=== PATIENT | female | born 1975 | race Caucasian/White ===

== ENCOUNTER 2018-05-07 22:45 | Emergency (ER) | payer SELFPAY ==
[2018-05-07 22:53] VITALS: BP 117/79; PULSE 81; TEMP 98.2; BMI 27.5
[2018-05-07 23:26] LABS: URINE APPEARANCE SLCLOUDY; URINE BILIRUBIN NEGATIVE (<2.0 mg/dL); URINE COLOR YELLOW; URINE GLUCOSE (UA) NEGATIVE (NEGATIVE); URINE KETONE NEGATIVE (NEGATIVE); URINE LEUK ESTERASE NEGATIVE (NEGATIVE); URINE NITRITE NEGATIVE (NEGATIVE); URINE PROTEIN NEGATIVE (NEGATIVE)
[2018-05-07 23:27] LABS: HCG,QUALITATIVE URINE Negative
--- NOTE | 2018-05-07 23:47 | PDOC ---
History of Present Illness <Deonna Martinez - Last Filed: 05/08/18 03:37> - General History Source: Patient Exam Limitations: No Limitations - History of Present Illness Initial Comments: 05/07/18 23:42 43 yo female pmh s/p brain tumor removal and tubal ligation presents to the ED for 1 day of abdominal pain. Of note, pt had similar pain 1 month ago for 1 day that resolved without treatment. Today, Pain started suddenly around 2 pm today , is constant, non radiating, located suprapubic region and described as sharp. Pt tried tylenol at home without improvement. Pt admits to associated burning on urination, denies frequency or blood in urine, denies back pain, N/V/F/C, vaginal pain or discharge. <Uri Grimes - Last Filed: 05/08/18 04:02> - General Chief Complaint: Pain Stated Complaint: ABDOMINAL PAIN/ urinary pain Time Seen by Provider: 05/07/18 23:19 Past History <Deonna Martinez - Last Filed: 05/08/18 03:37> - Past Medical History Anemia: No Asthma: No Cancer: No Cardiac Disorders: No CVA: No COPD: No CHF: No Dementia: No Diabetes: No GI Disorders: No Disorders: No HTN: No Hypercholesterolemia: No Liver Disease: No Seizures: No Thyroid Disease: No - Surgical History Abdominal Surgery: No Appendectomy: No Cardiac Surgery: No Cholecystectomy: No Lung Surgery: No Neurologic Surgery: Yes (BRAIN TUMOR 2010) Orthopedic Surgery: No - Reproductive History (#): 6 Para: 5 Cervical CA: No Dysfunctional Uterine Bleeding: No Ectopic : No Endometrial CA: No Polycystic Ovaries: No Therapeutic (s) & number: No Tubal Ligation: No - Immunization History Immunization Up to Date: Yes - Suicide/Smoking/Psychosocial Hx Smoking Status: No Smoking History: Never smoked Have you smoked in the past 12 months: No Number of Cigarettes Smoked Daily: 0 Information on smoking cessation initiated: No Hx Alcohol Use: No Drug/Substance Use Hx: No Substance Use Type: None Hx Substance Use Treatment: No <Uri Grimes - Last Filed: 05/08/18 04:02> - Past Medical History Allergies/Adverse Reactions: Allergies Allergy/AdvReac Type Severity Reaction Status Date / Time No Known Allergies Allergy Verified 05/07/18 22:53 Home Medications: Ambulatory Orders NK [No Known Home Medication] 05/07/18 Review of Systems - Review of Systems Constitutional: No: Chills, Fever Respiratory: No: Shortness of Breath Cardiac (ROS): No: Chest Pain, Edema ABD/GI: No: Abdominal Distended, Constipated, Diarrhea, Nausea, Vomiting <Uri Grimes - Last Filed: 05/08/18 04:02> *Physical Exam - Vital Signs Last Vital Signs Temp Pulse Resp BP Pulse Ox 98.2 F 81 16 117/79 100 05/07/18 22:51 05/07/18 22:51 05/07/18 22:51 05/07/18 22:51 05/07/18 22:51 <Deonna Martinez - Last Filed: 05/08/18 03:37> - Vital Signs Last Vital Signs Temp Pulse Resp BP Pulse Ox 98.2 F 81 16 117/79 100 05/07/18 22:51 05/07/18 22:51 05/07/18 22:51 05/07/18 22:51 05/07/18 22:51 <Uri Grimes - Last Filed: 05/08/18 04:02> Moderate Sedation - Procedure Monitoring Vital Signs: Procedure Monitoring Vital Signs Temperature 98.2 F 05/07/18 22:51 Pulse Rate 81 05/07/18 22:51 Respiratory Rate 16 05/07/18 22:51 Blood Pressure 117/79 05/07/18 22:51 O2 Sat by Pulse Oximetry (%) 100 05/07/18 22:51 <Deonna Martinez - Last Filed: 05/08/18 03:37> - Procedure Monitoring Vital Signs: Procedure Monitoring Vital Signs Temperature 98.2 F 05/07/18 22:51 Pulse Rate 81 05/07/18 22:51 Respiratory Rate 16 05/07/18 22:51 Blood Pressure 117/79 05/07/18 22:51 O2 Sat by Pulse Oximetry (%) 100 05/07/18 22:51 <Uri Grimes - Last Filed: 05/08/18 04:02> ED Treatment Course - LABORATORY CBC & Chemistry Diagram: 05/08/18 01:10 05/08/18 01:10 - ADDITIONAL ORDERS Additional order review: Laboratory Results 05/08/18 05/07/18 01:10 23:07 Sodium 141 Potassium 3.6 Chloride 109 H Carbon Dioxide 27 Anion Gap 6 L BUN 10 Creatinine 0.6 Creat Clearance w eGFR > 60 Random Glucose 102 Calcium 7.7 L Total Bilirubin 0.4 AST 9 L ALT 17 Alkaline Phosphatase 117 Total Protein 7.2 Albumin 3.9 Beta HCG, Quant < 1.0 Urine Color Yellow Urine Appearance Slcloudy Urine pH 7.0 Ur Specific [place] 1.021 Urine Protein Negative Urine Glucose (UA) Negative Urine Ketones Negative Urine Blood Negative Urine Nitrite Negative Urine Bilirubin Negative Urine Urobilinogen 2.0 H Ur Leukocyte Esterase Negative Urine HCG, Qual Negative 05/08/18 01:10 RBC 3.82 MCV 87.8 MCHC 34.5 RDW 14.0 MPV 8.0 Neutrophils % 69.5 Lymphocytes % 22.2 D Monocytes % 7.1 Eosinophils % 0.8 Basophils % 0.4 - Medications Given in the ED: ED Medications Discontinued Medications Generic Name Dose Route Start Last Admin Trade Name Freq PRN Reason Stop Dose Admin Acetaminophen 1,000 mg 05/08/18 00:22 05/08/18 01:22 Ofirmev Injection - IVPB 05/08/18 00:23 1,000 mg ONCE ONE Administration <Deonna Martinez - Last Filed: 05/08/18 03:37> - LABORATORY CBC & Chemistry Diagram: 05/08/18 01:10 05/08/18 01:10 - ADDITIONAL ORDERS Additional order review: Laboratory Results 05/07/18 23:07 Urine Color Yellow Urine Appearance Slcloudy Urine pH 7.0 Ur Specific [place] 1.021 Urine Protein Negative Urine Glucose (UA) Negative Urine Ketones Negative Urine Blood Negative Urine Nitrite Negative Urine Bilirubin Negative Urine Urobilinogen 2.0 H Ur Leukocyte Esterase Negative Urine HCG, Qual Negative <Uri Grimes - Last Filed: 05/08/18 04:02> Medical Decision Making - Medical Decision Making 05/08/18 03:37 Referring Physician: FREDY WEBBER Patient Name: CALLUM LOMELI THIS IS A PRELIMINARY REPORT FROM [facility] DATE OF SERVICE: 2018-05-08 02:17:26 IMAGES: [id number] EXAM: ABDOMEN \T\ PELVIS CT WITH CONTR HISTORY: Lower abdominal pain COMPARISON: None. FINDINGS: Lung bases are clear. The visualized cardiac chambers are normal size and configuration. Cholesterol gallstones are noted with questionable mild gallbladder inflammation. No biliary duct dilation. Small right hepatic lobe hypodensity is too small to characterize, possibly a cyst or hemangioma. Normal pancreas, spleen, adrenal glands and kidneys. The stomach and abdominal small and large bowel are normal. There is no aortic aneurysm. There is no significant retroperitoneal lymphadenopathy. Small fat containing umbilical hernia is noted. The pelvic small and large bowel are normal. The appendix is normal. The uterus and adnexal structures are normal. Urinary bladder is unremarkable. There is no pelvic free fluid. No discrete pelvic lymphadenopathy is identified. IMPRESSION: Gallstones and questionable mild gallbladder inflammation. Right upper quadrant ultrasound may be obtained as clinically indicated. <MartinezDeonna - Last Filed: 05/08/18 03:37> *DC/Admit/Observation/Transfer <MartinezDeonna - Last Filed: 05/08/18 03:37> - Discharge Dispostion Decision to Admit order: No <Uri Grimes - Last Filed: 05/08/18 04:02> Diagnosis at time of Disposition: Abdominal pain Qualifiers: Abdominal location: lower abdomen, unspecified Qualified Code(s): R10.30 - Lower abdominal pain, unspecified - Discharge Dispostion Disposition: HOME Condition at time of disposition: Stable - Referrals Referrals: Eileen Arevalo MD [Staff Physician] - - Patient Instructions Printed Discharge Instructions: DI for Abdominal Pain-Adult Additional Instructions: Please see your primary doctor within the next 48 hours. Make an appointment to see the Consultant [employer]. [employer] (Ex ) referred to you. Return to the ER for new or concerning symptoms including but not limited to: excessive pain not relieved by over the counter NSAID medication, high fevers, inability to eat or drink. Take over the counter Tylenol or Motrin for pain control. Thank you
[2018-05-08] MEDS ORDERED: ACETAMINOPHEN 1000 MG/100 ML VIAL (NON FORMULARY) IVPB ONE (00:22)
[2018-05-08] MEDS ORDERED: ACETAMINOPHEN INJECTION 100 ML IVPB ONE (01:16)
[2018-05-08 01:20] LABS: BASO % 0.4 % (0-2.0); EOS % 0.8 % (0-4.5); HEMATOCRIT 33.5 % (32.4-45.2); HEMOGLOBIN 11.6 GM/dL (10.7-15.3); LYMPH % 22.2 % (8-40); MCH 30.3 pg (25.7-33.7); MCHC 34.5 g/dl (32.0-36.0); MEAN CELL VOLUME 87.8 fl (80-96); MONO % 7.1 % (3.8-10.2); NEUT % 69.5 % (42.8-82.8); PLATELET COUNT 261 K/MM3 (134-434); RBC 3.82 M/mm3 (3.60-5.2); WHITE BLOOD COUNT 6.2 K/mm3 (4.0-10.0)
[2018-05-08 01:58] LABS: ALBUMIN 3.9 g/dl (3.4-5.0); ALK PHOS 117 U/L (45-117); ANION GAP 6 MMOL/L (8-16); BILIRUBIN,TOTAL 0.4 mg/dL (0.2-1); BLOOD UREA NITROGEN 10 mg/dL (7-18); CALCIUM 7.7 mg/dL (8.5-10.1); CHLORIDE 109 mmol/L (98-107); CO2 27 mmol/L (21-32); CREATININE 0.6 mg/dL (0.55-1.3); GLUCOSE,RANDOM 102 mg/dL (74-106); POTASSIUM 3.6 mmol/L (3.5-5.1); SGOT/AST 9 U/L (15-37); SGPT/ALT 17 U/L (13-61); SODIUM 141 mmol/L (136-145); TOT PROT 7.2 g/dl (6.4-8.2)
--- NOTE | 2018-05-08 02:08 | PDOC ---
Attending Attestation - HPI HPI: CC: Abdominal pain The patient is a 43 year old female, with a significant PMH of brain tumor s/p resection and tubal ligation, who presents to the emergency department today complaining of abdominal pain for 1 day. Patient notes that the pain suddenly came on earlier this afternoon without any causal factor. She describes the pain as sharp, constant, and localized to the suprapubic region. Patient reports associated dysuria, but denies any other urinary symptoms or vaginal pain/discharge. She admits to trying Tylenol without any relief. Patient notes a history of similar symptoms 1 month ago, which lasted for a day and self- resolved. The patient denies chest pain, shortness of breath, headache and dizziness. Denies fever, chills, nausea, vomit, diarrhea and constipation. Denies frequency, urgency and hematuria. Allergies: NKA Past surgical history: Brain tumor resection, tubal ligation Social history: No reported 05/08/18 02:09 - Physicial Exam PE: Vitals: Triage Vital signs reviewed General Appearance: no acute distress, well nourished well developed, Head: Atraumatic, normocephalic Cardiac: Regular rate and rhythm, no murmurs, no rubs, no gallops, Lungs: Clear to auscultation bilateral, good air movement bilaterally, Abdomen: +Diffuse lower abdominal tenderness to palpation. Soft, nondistended, normal bowel sounds, Extremities: Full range of motion to all extremities, no cyanosis, clubbing, or edema Skin: Warm and dry, no rashes or lesions, no petechiae Neuro: AOX3; Cranial Nerves 2-12 grossly c intact, Strength intact to all extremities, Sensation intact to all extremities. Psych: normal mood, normal affect 05/08/18 02:09 - Medical Decision Making 43 year old female with history of brain tumor resection and tubal ligation presents to the ED with abdominal pain for 1 day. Plan: Obtain labs, Transabdominal pelvic ultrasound, and administer IV Tylenol for pain relief. 2:00 am Re-assessment: Patient notes her pain remains. Will obtain abdomen CT with IV contrast to rule out acute surgical process. EXAM: Transabdominal pelvic ultrasound, endovaginal pelvic ultrasound with duplex IMPRESSION: Normal exam Reported by: Red Deras MD 05/08/2018 00:52 Documentation prepared by MATTHEW Jackson, acting as medical artist for Donny Kincaid MD. 05/08/18 02:10 <Krystle Leigh - Last Filed: 05/08/18 02:09> - Resident Resident Name: Uri Grimes - ED Attending Attestation I have performed the following: I have examined & evaluated the patient, The case was reviewed & discussed with the resident, I agree w/resident's findings & plan, Exceptions are as noted - Medical Decision Making No acute findings on laboratory analysis or ultrasound patient still persistent lower abdominal discomfort we'll CT abdomen pelvis to rule out acute surgical pathology Doctor Kavitha to follow-up results and dispo <Donny Kincaid - Last Filed: 05/08/18 02:16>
== END 2018-05-08 04:26 | disposition home or self-care (01) ==
LOC: JER 22:45
PROC: 3E033NZ Introduction of Analgesics, Hypnotics, Sedatives into Peripheral Vein, Percutaneous Approach (ICD-10-PCS; principal; 2018-05-07)
DX: R10.9 Unspecified abdominal pain (principal); K80.20 Calculus of gallbladder without cholecystitis without obstruction
CPT/HCPCS: 36415; 74177-TC; 76830-TC; 80053; 81003; 84702; 84703; 85025; 87086; 99283-25; J0131

== ENCOUNTER → 2019-02-06 | Emergency (ER) | payer OTHER ==
[~2019-02-06] MED LIST: ACETAMINOPHEN 325 MG TABLET (FP) ONE; ACETAMINOPHEN 325 MG TABLET (FP) PO ONE; CEFTRIAXONE 2,000 MG in DEXTROSE 5%-WATER - 50 ML IVPB ONE; PIPERACILLIN/TAZOB 4.5 GM 4.5 GM in DEXTROSE 5%-WATER 100 ML IVPB ONE; PIPERACILLIN/TAZOB 4.5 GM 4.5 GM/100 ML BAG IVPB ONE; VANCOMYCIN 1 GRAM (PRE-DOCKED) 1,000 MG/250 ML BAG IVPB ONE; VANCOMYCIN 1,000 MG in DEXTROSE 5%-WATER - 250 ML IVPB ONE
[2019-02-06 02:23] VITALS: BMI 28.8
--- NOTE | 2019-02-06 03:17 | PDOC ---
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 Pt reported her pain is constant, worse with coughing, bilateral anterior chest , no radiation, no alleviating factors. Pt also complained of room-spinning episode yesterday while standing at work, lasting 30 minutes with symptoms coming and going, associated with nausea, that self resolved. She reported this episode of vertigo was not associated with going from supine to standing/vice versa or associated with head orientation. She denied fever, lightheadedness, JOHNSON, headache. ROS General: denied fever, chills, generalized weakness. HEENT: denied sore throat, rhinorrhea, ear pain. Cardiovascular: denied chest pain, palpitations, syncope, diaphoresis. Respiratory: denied shortness of breath, cough, sputum production, hemoptysis. Gastrointestinal: denied abdominal pain, nausea, vomiting, diarrhea, constipation, blood in stool. Genitourinary: denied dysuria, increased urinary frequency, hematuria, urinary incontinence, flank pain. Back: denied back pain. Musculoskeletal: denied joint pain, muscle pain, joint swelling. Neurological: admitted to dizziness. denied headache, numbness, tingling, weakness. Integumentary: denied rash, laceration, abrasion. Hematologic/Lymphatic: denied bruising or bleeding. PE Constitutional: Well-nourished, Well-developed, appearing stated age. ambulating well without assistance. HEENT: head is normocephalic, atraumatic. EOMI. PERRLA. no tenderness to mastoid area bilaterally. no tenderness to posterior auricular area bilaterally. Neck: supple. Full ROM. no midline or paraspinal c-spine tenderness to palpation. Chest: reproducible anterior chest wall tenderness bilaterally. Cardiovascular: regular heart rhythm. no murmurs. no pericardial friction rub. Respiratory: clear to auscultation bilaterally. no crackles, rhonchi or wheezing. no stridor. speaking full sentences. no labored breathing at rest. no dyspnea with ambulation. Gastrointestinal: soft, nontender. normal bowel sounds. no rebound, guarding, masses. Extremities: peripheral pulses intact. no lower extremity edema. Neurological: CN 2-12 grossly intact. moves all four extremities. Psych: awake, alert, oriented x3. follows commands. answers questions appropriately. Past History - Past Medical History Allergies/Adverse Reactions: Allergies Allergy/AdvReac Type Severity Reaction Status Date / Time No Known Allergies Allergy Verified 02/06/19 02:15 Home Medications: Ambulatory Orders NK [No Known Home Medication] 05/07/18 - Psycho Social/Smoking Cessation Hx Smoking Status: No Smoking History: Never smoked Number of Cigarettes Smoked Daily: 0 Hx Alcohol Use: No Drug/Substance Use Hx: No *Physical Exam - Vital Signs Last Vital Signs Temp Pulse Resp BP Pulse Ox 98.1 F 81 17 107/76 97 02/06/19 02:02 02/06/19 02:02 02/06/19 02:02 02/06/19 02:02 02/06/19 02:02 ED Treatment Course - LABORATORY CBC & Chemistry Diagram: 02/06/19 03:33 02/06/19 03:33 Medical Decision Making - Medical Decision Making 43 year old female with above PMH presented to ED for chest pain associated with productive yellow cough. Pt also complained of a 30 minute episode of intermittent room-spinning sensation. Initial Vital Signs Temp Pulse Resp BP Pulse Ox 98.0 F 81 17 107/76 97 02/06/19 00:55 02/06/19 00:55 02/06/19 00:55 02/06/19 00:55 02/06/19 00:55 Afebrile. No tachycardia. No tachypnea. Normal BP for age. No hypoxia on room air. Labs ordered: CBC, CMP, Mag, BNP, troponin Imaging ordered: CXR, CT head noncontrast Medications ordered: tylenol 975 mg PO once EKG performed at 0358: rate 72, regular rhythm, normal axis, normal intervals, nonspecific ST changes. MRI Brain 10/27/12: Name: CEC[facility] DEPARTMENT OF RADIOLOGY Phys: Mt Hanson MD : 1975 Age: 37 Sex: F [facility] Acct : [id number] Loc: [address] Exam Date: 10/27/12 Status: REG REF [place] [id number] Unit Number: [id number] EXAM#: TYPE/EXAM: RESULT: MRI/BRAIN MRI W/O CONTRAST MRI of the brain. HISTORY: peripheral nerve palsy. TECHNIQUE: Multisequential MRI of the brain was obtained in multiple planes without use of intravenous gadolinium. FINDINGS: There is a large mass involving the right temporal bone measuring 6.4 x 6.0 x 3.7 cm in greatest dimensions. The mass involves the temporal bone with extension into the right aspect of the clivus and the Johnathan apex. Resultant large amount of fluid within the right mastoid air cells. The mass extends into the right cerebellopontine angle and causes mass effect on the right middle cerebellar peduncle and the right cerebellar hemisphere. Extension into the right internal auditory canal noted. Mild mass effect on the right aspect of the fourth ventricle. The right internal carotid artery foramen is involved, however the flow-void does not appear to be disrupted. No intraparenchymal mass noted. The encephalomalacia involving the right cerebellar hemisphere likely related to old tumor resection. No intraparenchymal hemorrhage noted. IMPRESSION: 6.4 x 6.0 x 3.7 cm mass involving the right temporal bone with extension into the Johnathan apex and the right cerebellopontine angle with mass effect on the right middle cerebellar peduncle as described above. Finding could be metastatic or due to a primary bony lesion. A CT scan may be helpful in further evaluation. <> Reported By: Dragan Mcgee MD 02/06/19 04:34 CBC WBC 6.5 K/mm3 (4.0-10.0) 02/06/19 03:33 RBC 3.82 M/mm3 (3.60-5.2) 02/06/19 03:33 Hgb 11.0 GM/dL (10.7-15.3) 02/06/19 03:33 Hct 33.7 % (32.4-45.2) 02/06/19 03:33 MCV 88.2 fl (80-96) 02/06/19 03:33 MCH 28.7 pg (25.7-33.7) 02/06/19 03:33 MCHC 32.6 g/dl (32.0-36.0) 02/06/19 03:33 RDW 14.5 % (11.6-15.6) 02/06/19 03:33 Plt Count 232 K/MM3 (134-434) 02/06/19 03:33 MPV 8.1 fl (7.5-11.1) 02/06/19 03:33 Absolute Neuts (auto) 4.0 K/mm3 (1.5-8.0) 02/06/19 03:33 Neutrophils % 61.2 % (42.8-82.8) 02/06/19 03:33 Lymphocytes % 29.9 % (8-40) D 02/06/19 03:33 Monocytes % 6.8 % (3.8-10.2) 02/06/19 03:33 Eosinophils % 1.8 % (0-4.5) D 02/06/19 03:33 Basophils % 0.3 % (0-2.0) 02/06/19 03:33 Nucleated RBC % 0 % (0-0) 02/06/19 03:33 CMP Sodium 141 mmol/L (136-145) 02/06/19 03:33 Potassium 3.6 mmol/L (3.5-5.1) 02/06/19 03:33 Chloride 113 mmol/L (98-107) H 02/06/19 03:33 Carbon Dioxide 23 mmol/L (21-32) 02/06/19 03:33 Anion Gap 5 MMOL/L (8-16) L 02/06/19 03:33 BUN 9.0 mg/dL (7-18) 02/06/19 03:33 Creatinine 0.5 mg/dL (0.55-1.3) L 02/06/19 03:33 Est GFR (CKD-EPI)AfAm 139.33 02/06/19 03:33 Est GFR (CKD-EPI)NonAf 120.22 02/06/19 03:33 Random Glucose 109 mg/dL (74-106) H 02/06/19 03:33 Calcium 8.1 mg/dL (8.5-10.1) L 02/06/19 03:33 Total Bilirubin 0.2 mg/dL (0.2-1) 02/06/19 03:33 AST 5 U/L (15-37) L 02/06/19 03:33 ALT 14 U/L (13-61) 02/06/19 03:33 Alkaline Phosphatase 101 U/L (45-117) 02/06/19 03:33 Troponin I < 0.02 ng/ml (0.00-0.05) 02/06/19 03:33 B-Natriuretic Peptide 20.5 pg/ml (5-125) 02/06/19 03:33 Total Protein 6.5 g/dl (6.4-8.2) 02/06/19 03:33 Albumin 3.7 g/dl (3.4-5.0) 02/06/19 03:33 Lipase 217 U/L (73-393) 02/06/19 03:33 Serum , Qual Negative 02/06/19 03:33 02/06/19 04:52 CXR shows no infiltrate, no cardiomegaly, no large pneumothorax by my view. -Pending official report 02/06/19 05:08 Pt reported improvement of symptoms with Tylenol. Pending CT head. 02/06/19 06:20 CT head report: Referring Physician: KEON FRANCE Patient Name: CALLUM LOMELI THIS IS A PRELIMINARY REPORT FROM [facility] DATE OF SERVICE: 2019-02-06 05:42:52 IMAGES: [id number] EXAM: HEAD CT WITHOUT CONTRAST HISTORY: Vertigo COMPARISON: None. FINDINGS: Status post right occipital craniectomy with subjacent encephalomalacia. The ventricular system is midline and nondilated. The sulcal pattern is normal for the patient's age. There is no bleed, mass, extra-axial fluid collection or mass effect. No skull fracture or skull lesion is identified. Large right mastoid effusion indicate severe mastoiditis. Left mastoid air cells are clear. There is small retention cysts or polyps in the left maxillary sinus and minimal mucosal thickening in the sphenoids sinuses. IMPRESSION: Severe right mastoiditis may be related to prior occipital craniectomy. Postoperative right cerebellar encephalomalacia, without definite evidence of acute pathology, but suggest comparison with any prior exams. One or more of the following dose reduction techniques were used: automated exposure control, adjustment of the mA and/or kV according to patient size, use of iterative reconstructive technique. THIS DOCUMENT HAS BEEN ELECTRONICALLY SIGNED Red Deras MD 02/06/2019 06:03 GORAN Swan Please call [facility] [email or web address] ([phone]) with questions. Rachid Deras MD Medications ordered: Vancomycin and Zosyn. Labs ordered: blood cultures Pt to be transferred to tertiary care center as there is no inpatient ENT at [facility]. Pt would likely benefit from transfer to hospital in which she had her original surgery performed for temporal bone mass. 02/06/19 06:46 Pt informed of results, reported her surgery was performed at [place]. Will call transfer center. 02/06/19 06:57 Pt's son (Luis Reis) left ED to grab pt's belongings, requesting to be called if patient is sent somewhere else than [place]. Transfer center called by PGY3 Dr. Elizabeth, reported physician will call back, but not until around 0730, as it is shift change. Pt signed out to Dr. Hansen. Pt is pending transfer, need accepting ENT or Neurosurgery. Discharge - Discharge Information Problems reviewed: Yes Clinical Impression/Diagnosis: Cough, Chest pain, Mastoiditis Condition: Stable Disposition: TRANSFER ACUTE CARE/OTHER HOSP - Admission No - Follow up/Referral Referrals: Drake Butler MD [Primary Care Provider] - - Patient Discharge Instructions Print Language: IVORIAN - Post Discharge Activity
--- NOTE | 2019-02-06 03:35 | PDOC ---
Attending Attestation - Resident Resident Name: MichelleMartha - ED Attending Attestation I have performed the following: I have examined & evaluated the patient, The case was reviewed & discussed with the resident, I agree w/resident's findings & plan - HPI HPI: 02/06/19 20:00 see resident hpi - Physicial Exam PE: 02/06/19 20:00 agree with resident exam - Medical Decision Making 02/06/19 20:00 43 yo female with dizziness and CP CT scan showed mastitis possibly related to previous intracranial surgery Case signed out to [facility] for transfer set up to [facility] for continuity of care and ENT consultation
[2019-02-06 03:44] LABS: BASO % 0.3 % (0-2.0); EOS % 1.8 % (0-4.5); HEMATOCRIT 33.7 % (32.4-45.2); LYMPH % 29.9 % (8-40); MCH 28.7 pg (25.7-33.7); MCHC 32.6 g/dl (32.0-36.0); MEAN CELL VOLUME 88.2 fl (80-96); MEAN PLT VOLUME 8.1 fl (7.5-11.1); MONO % 6.8 % (3.8-10.2); NEUT % 61.2 % (42.8-82.8); PLATELET COUNT 232 K/MM3 (134-434); RBC 3.82 M/mm3 (3.60-5.2); RDW 14.5 % (11.6-15.6); WHITE BLOOD COUNT 6.5 K/mm3 (4.0-10.0)
[2019-02-06 04:05] LABS: ALBUMIN 3.7 g/dl (3.4-5.0); BILIRUBIN,TOTAL 0.2 mg/dL (0.2-1); CALCIUM 8.1 mg/dL (8.5-10.1); CREATININE 0.5 mg/dL (0.55-1.3); POTASSIUM 3.6 mmol/L (3.5-5.1); TOT PROT 6.5 g/dl (6.4-8.2)
[2019-02-06 04:07] LABS: INR 1.1 (0.83-1.09)
--- NOTE | 2019-02-06 07:30 | PDOC ---
*Physical Exam - Vital Signs Last Vital Signs Temp Pulse Resp BP Pulse Ox 98.1 F 81 17 107/76 97 02/06/19 02:02 02/06/19 02:02 02/06/19 02:02 02/06/19 02:02 02/06/19 02:02 ED Treatment Course - LABORATORY CBC & Chemistry Diagram: 02/06/19 03:33 02/06/19 03:33 - ADDITIONAL ORDERS Additional order review: Laboratory Results 02/06/19 02/06/19 02/06/19 03:33 03:33 03:33 PT with INR 13.00 INR 1.10 H PTT (Actin FS) Sodium Potassium Chloride Carbon Dioxide Anion Gap BUN Creatinine Est GFR (CKD-EPI)AfAm Est GFR (CKD-EPI)NonAf Random Glucose Calcium Total Bilirubin AST ALT Alkaline Phosphatase Troponin I < 0.02 B-Natriuretic Peptide Total Protein Albumin Lipase Serum , Qual Negative 02/06/19 02/06/19 02/06/19 03:33 03:33 03:33 PT with INR INR PTT (Actin FS) Sodium 141 Potassium 3.6 Chloride 113 H Carbon Dioxide 23 Anion Gap 5 L BUN 9.0 Creatinine 0.5 L Est GFR (CKD-EPI)AfAm 139.33 Est GFR (CKD-EPI)NonAf 120.22 Random Glucose 109 H Calcium 8.1 L Total Bilirubin 0.2 AST 5 L ALT 14 Alkaline Phosphatase 101 Troponin I B-Natriuretic Peptide 20.5 Total Protein 6.5 Albumin 3.7 Lipase 217 Serum , Qual 02/06/19 03:33 PT with INR INR PTT (Actin FS) 35.1 Sodium Potassium Chloride Carbon Dioxide Anion Gap BUN Creatinine Est GFR (CKD-EPI)AfAm Est GFR (CKD-EPI)NonAf Random Glucose Calcium Total Bilirubin AST ALT Alkaline Phosphatase Troponin I B-Natriuretic Peptide Total Protein Albumin Lipase Serum , Qual 02/06/19 03:33 RBC 3.82 MCV 88.2 MCHC 32.6 RDW 14.5 MPV 8.1 Neutrophils % 61.2 Lymphocytes % 29.9 D Monocytes % 6.8 Eosinophils % 1.8 D Basophils % 0.3 - Medications Given in the ED: ED Medications Discontinued Medications Generic Name Dose Route Start Last Admin Trade Name Freq PRN Reason Stop Dose Admin Acetaminophen 975 mg 02/06/19 03:36 02/06/19 03:50 Tylenol - PO 02/06/19 03:37 975 mg ONCE ONE Administration Piperacillin Sod/Tazobactam 100 mls @ 200 mls/hr 02/06/19 06:30 02/06/19 06: 45 Sod 4.5 gm/ Dextrose IVPB 02/06/19 06:59 200 mls/hr ONCE ONE Administration Protocol Medical Decision Making - Medical Decision Making 02/06/19 07:25 Sign out received from Dr Martinez. 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 She was found to have severe right mastoiditis. ED course so far notable for: - Labs unremarkable - Broad spectrum abx given for mastoiditis - Given location, concern that mastoiditis may be related to previous tumor or surgery. No ENT available at [facility], plan to transfer for further management - [facility] contacted to begin transfer. Waiting for call back 02/06/19 08:18 - Called [facility] transfer center for updates. According to transfer center, ENT will not be available until around noon - Updated pt and her son. Discussed possibility of transfer to a different hospital for ENT evaluation, but advised that [facility] may be the best option as her records are available there. Pt agrees to wait for [facility] 02/06/19 10:38 - In-house radiology reports that CT findings are suggestive of a residual mass - Spoke to Dr Lora, neurosurgery, at [facility]. Agrees that pt should have neurosurgery evaluation - Pt Previously consented for transfer by Dr Martinez. 02/06/19 11:38 - Transportation arranged, accepted by Dr Johnson in the ED at [facility] - Waiting for ambulance. Pt aware Discussed with Dr Huang. Ernestina Hansen PGY2 Discharge - Discharge Information Problems reviewed: Yes Clinical Impression/Diagnosis: Cough, Bone mass Chest pain Qualifiers: Chest pain type: chest pain on breathing Qualified Code(s): R07.1 - Chest pain on breathing; R07.81 - Pleurodynia Mastoiditis Qualifiers: Laterality: right Qualified Code(s): H70.91 - Unspecified mastoiditis, right ear Condition: Stable Disposition: TRANSFER ACUTE CARE/OTHER HOSP - Follow up/Referral Referrals: Drake Butler MD [Primary Care Provider] - - Patient Discharge Instructions Print Language: POLISH - Post Discharge Activity
[2019-02-06 08:51] VITALS: BP 100/65; PULSE 66; TEMP 98
--- NOTE | 2019-02-06 10:31 | EKG ---
Test Reason : Blood Pressure : / mmHG Vent. Rate : 072 BPM Atrial Rate : 072 BPM P-R Int : 154 ms QRS Dur : 082 ms QT Int : 382 ms P-R-T Axes : 032 029 015 degrees QTc Int : 418 ms NORMAL SINUS RHYTHM NORMAL ECG Confirmed by MD DAJUAN, RAPHAEL ([id number]) on 02/06/2019 10:30:42 AM Referred By: Confirmed By:RAPHAEL GRAFF MD
--- NOTE | 2019-02-07 10:35 | EKG ---
Test Reason : Blood Pressure : / mmHG Vent. Rate : 084 BPM Atrial Rate : 084 BPM P-R Int : 152 ms QRS Dur : 090 ms QT Int : 372 ms P-R-T Axes : 066 055 031 degrees QTc Int : 439 ms NORMAL SINUS RHYTHM NORMAL ECG WHEN COMPARED WITH ECG OF 21-AUG-2010 21:32, NO SIGNIFICANT CHANGE WAS FOUND Confirmed by MITCH NATION MD ([id number]) on 02/07/2019 10:35:07 AM Referred By: Confirmed By:MITCH NATION MD
== END | disposition short-term general hospital (02) ==
LOC: JER 00:51
DX: H70.001 Acute mastoiditis without complications, right ear (principal); R07.81 Pleurodynia; M89.8X9 Other specified disorders of bone, unspecified site
CPT/HCPCS: 36415; 70450-TC; 71046-TC-FY; 80053; 83690; 83880; 84484; 84703; 85025; 85610; 85730; 87040; 93005; 93010; 96365; 96367; 99285-25

== ENCOUNTER 2020-02-05 20:45 | Emergency (ER) | payer OTHER ==
[2020-02-05 21:07] VITALS: BP 119/74; PULSE 83; TEMP 97.4; BMI 27.0
[2020-02-05] MEDS ORDERED: KETOROLAC TROMETHAMINE 60 MG/2 ML VIAL IM ONE (21:17)
== END 2020-02-05 21:31 | disposition home or self-care (01) ==
LOC: JERFT 20:45 → JER 20:45 → JERFT 21:31
PROC: 3E0233Z Introduction of Anti-inflammatory into Muscle, Percutaneous Approach (ICD-10-PCS; principal; 2020-02-05)
DX: H60.92 Unspecified otitis externa, left ear (principal)
CPT/HCPCS: 99284-25

== ENCOUNTER 2020-08-01 14:32 | Emergency (ER) | payer OTHER ==
[2020-08-01 14:48] VITALS: BP 118/67; PULSE 84; TEMP 98.4; BMI 27.4
[2020-08-02 11:15] LABS: SARS-CoV-2 NAA Not Detected (Not Detected)
== END 2020-08-01 16:07 | disposition home or self-care (01) ==
LOC: JER 14:32
DX: J02.9 Acute pharyngitis, unspecified (principal); Z11.52 Encounter for screening for COVID-19
CPT/HCPCS: 87880; 99283-25; C9803; U0003; U0005

== ENCOUNTER 2022-01-15 13:42 | Emergency (ER) | payer OTHER ==
[2022-01-15 13:46] VITALS: BP 143/82; PULSE 88; RESP 18; TEMP 97.7; BMI 24.1
== END 2022-01-15 14:26 | disposition home or self-care (01) ==
LOC: JERFT 13:42
DX: H66.90 Otitis media, unspecified, unspecified ear (principal)
CPT/HCPCS: 99283-25

== ENCOUNTER 2022-03-30 17:37 | Day surgery (SDC) | payer OTHER ==
[2022-03-30 18:36] VITALS: BMI 25.6
[2022-03-30] MEDS ORDERED: MAG HYDROX/AL HYDROX/SIMETH -MYLANTA- ORAL SUSPENSION PO ONE (19:51)
[2022-03-30] MEDS ORDERED: FAMOTIDINE 20 MG/50 ML IVPB 20 MG/50 ML MG IVPB ONE ×2 (19:51→20:26)
[2022-03-30] MEDS ORDERED: SODIUM CHLORIDE 1,000 ML IV STA (19:51)
[2022-03-30] MEDS ORDERED: ONDANSETRON 4 MG/2 ML VIAL IVPUSH ONE (19:52)
[2022-03-30] MEDS ORDERED: MAG HYDROX/AL HYDROX/SIMETH 30 ML UNIT-DOSE CUP ONE (20:17)
[2022-03-30] MEDS ORDERED: ONDANSETRON 4 MG/2 ML VIAL ONE (20:17)
[2022-03-30 20:30] LABS: BASO % 0.2 % (0-2.0); EOS % 0.6 % (0-4.5); HEMOGLOBIN 10.4 GM/dL (10.7-15.3); LYMPH % 17.5 % (8-40); MCH 26.2 pg (25.7-33.7); MCHC 32.6 g/dl (32.0-36.0); MEAN CELL VOLUME 80.4 fl (80-96); MEAN PLT VOLUME 7.6 fl (7.5-11.1); MONO % 5.5 % (3.8-10.2); NEUT % 76.2 % (42.8-82.8); PLATELET COUNT 307 10^3/uL (134-434); RBC 3.98 M/mm3 (3.60-5.2); RDW 15.9 % (11.6-15.6); WHITE BLOOD COUNT 6.8 K/mm3 (4.0-10.0)
[2022-03-30 20:31] LABS: URINE APPEARANCE CLEAR; URINE BILIRUBIN NEGATIVE (NEGATIVE); URINE COLOR YELLOW; URINE GLUCOSE (UA) NEGATIVE (NEGATIVE); URINE KETONE TRACE (NEGATIVE); URINE LEUK ESTERASE NEGATIVE (NEGATIVE); URINE NITRITE NEGATIVE (NEGATIVE); URINE PROTEIN NEGATIVE (NEGATIVE)
[2022-03-30 20:38] LABS: HCG,QUALITATIVE URINE Negative
[2022-03-30 21:51] LABS: BLOOD UREA NITROGEN 12.8 mg/dL (7-18); CREATININE 0.7 mg/dL (0.55-1.3)
[2022-03-30 21:52] LABS: ALBUMIN 3.8 g/dl (3.4-5.0); BILIRUBIN,TOTAL 0.3 mg/dL (0.2-1); CALCIUM 8.5 mg/dL (8.5-10.1); TOT PROT 7.3 g/dl (6.4-8.2)
[2022-03-30] MEDS ORDERED: PIPERACILLIN/TAZOB 3.375 GM 3.375 GM in DEXTROSE 5%-WATER - 50 ML IVPB ONE (23:19)
[2022-03-30] MEDS ORDERED: ACETAMINOPHEN 1000 MG/100 ML BAG IVPB ONE (23:24)
[2022-03-30] MEDS ORDERED: PIPERACILLIN/TAZOB 3.375 GM 3.375 GM/50 ML BAG IVPB ONE (23:35)
[2022-03-30 23:57] LABS: INR 1.09 (0.83-1.09); PROTHROMBIN TIME (PATIENT) 12.6 SEC (9.7-13.0)
[2022-03-31] LABS: ACTIVATED PTT 30.1 SECONDS (25.2-36.5)
[2022-03-31] MEDS ORDERED: SODIUM CHLORIDE 1,000 ML IV SCH (02:00)
[2022-03-31] MEDS: ACETAMINOPHEN 325 MG TABLET (FP) PO SCH ×2 (03:12→09:49)
[2022-03-31] MEDS ORDERED: ACETAMINOPHEN 325 MG TABLET (FP) ONE ×2 (03:14→09:46)
[2022-03-31] MEDS ORDERED: AMPICILLIN NA/SULBACTAM NA 3 GM in SODIUM CHLORIDE 100 ML IVPB SCH (06:00)
[2022-03-31 08:45] LABS: BASO % 0.3 % (0-2.0); EOS % 1.5 % (0-4.5); HEMATOCRIT 28.1 % (32.4-45.2); HEMOGLOBIN 8.9 GM/dL (10.7-15.3); LYMPH % 27.4 % (8-40); MCH 25.6 pg (25.7-33.7); MCHC 31.5 g/dl (32.0-36.0); MEAN CELL VOLUME 81.2 fl (80-96); MEAN PLT VOLUME 7.7 fl (7.5-11.1); MONO % 7.4 % (3.8-10.2); NEUT % 63.4 % (42.8-82.8); PLATELET COUNT 227 10^3/uL (134-434); RBC 3.46 M/mm3 (3.60-5.2); RDW 15.8 % (11.6-15.6); WHITE BLOOD COUNT 5.2 K/mm3 (4.0-10.0)
[2022-03-31 09:01] LABS: CALCIUM 7.5 mg/dL (8.5-10.1)
[2022-03-31 09:02] LABS: BLOOD UREA NITROGEN 9.4 mg/dL (7-18); MAGNESIUM 2.1 mg/dL (1.8-2.4)
[2022-03-31 09:04] LABS: CREATININE 0.5 mg/dL (0.55-1.3); PHOSPHOROUS 2.9 mg/dL (2.5-4.9)
[2022-03-31 09:06] LABS: BILIRUBIN,TOTAL 0.4 mg/dL (0.2-1); TOT PROT 5.9 g/dl (6.4-8.2)
[2022-03-31] MEDS ORDERED: BUPIVACAINE HCL/PF 0.5% (5MG/ML) 10 ML VIAL ONE (11:49)
[2022-03-31] MEDS ORDERED: BUPIVACAINE HCL/PF 0.25% (2.5MG/ML) 10 ML VIAL ONE (11:52)
[2022-03-31] MEDS ORDERED: DEXAMETHASONE SOD PHOSPHATE 4 MG/1 ML VIAL ONE (12:27)
[2022-03-31] MEDS ORDERED: ONDANSETRON 4 MG/2 ML VIAL ONE ×2 (12:27→16:24)
[2022-03-31] MEDS ORDERED: MIDAZOLAM HCL 2 MG/2 ML SINGLE DOSE VIAL ONE ×2 (12:27→13:55)
[2022-03-31] MEDS ORDERED: PROPOFOL 20 ML ONE ×2 (12:32→13:52)
[2022-03-31] MEDS ORDERED: SUCCINYLCHOLINE CHLORIDE 200 MG/10 ML SYRINGE ONE (12:33)
[2022-03-31] MEDS ORDERED: ROCURONIUM BROMIDE 50 MG/5 ML SYRINGE ONE (12:33)
[2022-03-31] MEDS ORDERED: ceFAZolin SODIUM 1 GM VIAL IVPB ONE (12:47)
[2022-03-31] MEDS ORDERED: ceFAZolin SODIUM 1 GM VIAL ONE (12:47)
[2022-03-31] MEDS ORDERED: SEVOFLURANE 250 ML BTL ONE (12:57)
[2022-03-31] MEDS ORDERED: BUPIVACAINE HCL/PF 0.5% (5MG/ML) 10 ML VIAL IJ ONE ×2 (13:13)
[2022-03-31] MEDS ORDERED: HYDROmorphone HCl 2 MG/ML VIAL ONE ×2 (13:20→16:39)
[2022-03-31] MEDS ORDERED: GLYCOPYRROLATE 0.2 MG/1 ML VIAL ONE (13:31)
[2022-03-31] MEDS ORDERED: NEOSTIGMINE METHYLSULFATE 0.5 MG/1 ML - 10 ML MDV ONE (13:31)
[2022-03-31] MEDS ORDERED: KETOROLAC TROMETHAMINE 30 MG/1 ML VIAL ONE (13:32)
[2022-03-31] MEDS ORDERED: ACETAMINOPHEN 1000 MG/100 ML BAG IVPB ONE ×2 (14:24→16:26)
[2022-03-31] MEDS ORDERED: ONDANSETRON 4 MG/2 ML VIAL IVPUSH PRN ×2 (14:24→14:39)
[2022-03-31] MEDS ORDERED: LACTATED RINGERS SOLUTION 1,000 ML IV SCH (14:30)
[2022-03-31] MEDS ORDERED: oxyCODONE HCL 5 MG TABLET PO PRN (14:39)
[2022-03-31] MEDS ORDERED: ACETAMINOPHEN INJECTION 100 ML IVPB ONE (16:19)
[2022-03-31] MEDS ORDERED: HYDROmorphone HCl 2 MG/ML VIAL IVPUSH ONE ×2 (16:22→16:42)
[2022-03-31] MEDS: LACTATED RINGERS SOLUTION 1,000 ML IV SCH (18:00)
[2022-03-31] MEDS ORDERED: IBUPROFEN 600 MG TABLET (FP) PO PRN (20:30)
[2022-03-31] MEDS ORDERED: ACETAMINOPHEN 500 MG TABLET (FP) PO PRN (21:00)
[2022-04-01 04:15] VITALS: RESP 20
[2022-04-01] MEDS ORDERED: ENOXAPARIN NA (PORCINE) 40 MG/0.4 ML DISP.SYRIN SQ SCH ×3 (10:00)
[2022-04-01 11:57] LABS: BASO % 0.2 % (0-2.0); EOS % 0.1 % (0-4.5); HEMATOCRIT 27.6 % (32.4-45.2); LYMPH % 18.4 % (8-40); MCH 26.3 pg (25.7-33.7); MCHC 32.4 g/dl (32.0-36.0); MEAN PLT VOLUME 7.6 fl (7.5-11.1); MONO % 7.3 % (3.8-10.2); PLATELET COUNT 247 10^3/uL (134-434); RBC 3.41 M/mm3 (3.60-5.2); RDW 15.7 % (11.6-15.6); WHITE BLOOD COUNT 7.9 K/mm3 (4.0-10.0)
[2022-04-01 12:10] LABS: CALCIUM 7.9 mg/dL (8.5-10.1)
[2022-04-01 12:11] LABS: BLOOD UREA NITROGEN 6.5 mg/dL (7-18)
[2022-04-01 12:14] LABS: CREATININE 0.6 mg/dL (0.55-1.3)
[2022-04-01] MEDS: LACTATED RINGERS SOLUTION 1,000 ML IV SCH (16:35)
[2022-04-01] MEDS ORDERED: POTASSIUM CHLORIDE TABS 20 MEQ TABLET.ER (FP) PO ONE (17:11)
[2022-04-01 18:44] VITALS: BP 107/68; PULSE 82; TEMP 99.3
== END 2022-04-01 18:52 | disposition home or self-care (01) ==
LOC: JER 17:37 → UNDOADMIN 03-31 00:27 → JERBED 03-31 00:27 → SUATTDRO 03-31 13:53 → JASUSAT 03-31 13:53 → J5S 03-31 22:00 → JASUSAT 04-01 18:52
PROVIDERS: ATTEND Internal Medicine
PROC: 0FT44ZZ Resection of Gallbladder, Percutaneous Endoscopic Approach (ICD-10-PCS; principal; 2022-03-31 12:00)
DX: K80.00 Calculus of gallbladder with acute cholecystitis without obstruction (principal)
CPT/HCPCS: 0241U-QW; 36415; 71046-TC-FY; 76705-TC; 80048; 80053; 81003; 82150; 83690; 83735; 84100; 84703; 85025; 85610; 85730; 86850; 86900; 86901; 87086; 88304-TC; 94760; 99285-25